=== PATIENT | male | born 1955 | race Caucasian/White ===

== ENCOUNTER 2021-09-22 16:11 | Outpatient (REF) | payer BC, SELFPAY ==
[2021-09-22 16:34] LABS: MANUAL DIFF FLAG NO
[2021-09-22 16:47] LABS: Appearance Urine CLEAR; Color Urine YELLOW; Glucose Urine UA NEG (NEG); Leukocyte Esterase Urine NEG (NEG); Nitrite Urine NEG (NEG); Urine Blood TRACE (NEG); Urine Ketones 15 MG/DL (NEG); Urine Protein NEG (NEG-TRACE)
[2021-09-22 16:59] LABS: Basophils Absolute Auto 0.1 X10*3/uL (0.0-0.2); Basophils Percent Auto 0.8 % (0-2); Eosinophils Absolute Auto 0.2 X10*3/uL (0.0-0.4); Eosinophils Percent Auto 2.3 % (0-4); Hematocrit 42.2 % (42.0-52.0); Hemoglobin 14.5 g/dl (14.0-18.0); Imm Gran Abs Auto 0.01 X10*3/uL (0.00-0.03); Imm Gran Pct Auto 0.2 % (0.0-0.4); Lymphocytes Absolute Auto 2.4 X10*3/uL (1.2-4.9); Lymphocytes Percent Auto 36.9 % (20-40); Mean Corpuscular HGB Conc 34.4 g/dl (31.0-36.0); Mean Corpuscular Volume 93.2 fL (80.0-98.0); Mean Platelet Volume 9.9 fL (9.4-12.4); Monocytes Absolute Auto 0.7 X10*3/uL (0.1-1.2); Monocytes Percent Auto 10.9 % (2-11); Neutrophils Absolute Auto 3.1 x10*3/uL (2.0-8.3); Neutrophils Percent Auto 48.9 % (45-73); Platelet Count 217 X10*3/uL (160-400); Red Blood Count 4.53 X10*6/uL (4.60-5.80); Red Cell Distribution Width 14.3 % (11.0-16.0); White Blood Count 6.4 X10*3/uL (4.8-10.8)
[2021-09-22 17:01] LABS: WBC Urine 0 /HPF (0-4)
[2021-09-22 17:13] LABS: Alanine Aminotransferase 16 U/L (0-40); Albumin Level 4.4 g/dL (3.5-5.0); Alkaline Phosphatase 67 U/L (39-117); Anion Gap 13 (12-20); Aspartate Amino Transferase 19 U/L (5-37); Bilirubin Total 0.7 mg/dL (0.0-1.0); Blood Urea Nitrogen 14 mg/dL (9-16); Calcium 9.8 mg/dL (8.4-10.2); Carbon Dioxide 22 mmol/L (22-29); Chloride 104 mmol/L (96-108); Cholesterol 200 mg/dL; Estimated Glomerular Filt Rate > 60; Glucose Random 84 mg/dL (60-115); HDL Cholesterol 101 mg/dL; LDL Cholesterol Calculated 91 mg/dl; Potassium 4.1 mmol/L (3.3-5.1); Sodium 135 mmol/L (135-145); Total Protein 7.3 g/dL (6.5-8.0); Triglycerides 41 mg/dL
[2021-09-22 17:31] LABS: Prostate Specific Antigen 0.94 ng/mL (<0.05-4.0)
== END 2021-09-22 16:12 | disposition home or self-care (01) ==
LOC: HO.LAB 16:11
PROVIDERS: PCP Internal Medicine; Visit Provider Internal Medicine
DX: Z00.00 Encounter for general adult medical examination without abnormal findings (principal); Z72.0 Tobacco use; Z12.5 Encounter for screening for malignant neoplasm of prostate
CPT/HCPCS: 36415; 80053; 80061; 81001; 84153; 85025

== ENCOUNTER 2023-06-03 10:27 | Outpatient (REF) | payer SELFPAY ==
[2023-06-03 13:06] LABS: MANUAL DIFF FLAG NO
[2023-06-03 13:10] LABS: Basophils Absolute Auto 0.1 X10*3/uL (0.0-0.2); Eosinophils Absolute Auto 0.2 X10*3/uL (0.0-0.4); Eosinophils Percent Auto 2.9 % (0-4); Hematocrit 43.7 % (42.0-52.0); Hemoglobin 14.8 g/dl (14.0-18.0); Imm Gran Abs Auto 0.01 X10*3/uL (0.00-0.03); Imm Gran Pct Auto 0.2 % (0.0-0.4); Lymphocytes Absolute Auto 1.8 X10*3/uL (1.2-4.9); Mean Corpuscular HGB Conc 33.9 g/dl (31.0-36.0); Mean Corpuscular Hemoglobin 32.1 pg (27.0-33.0); Mean Corpuscular Volume 94.8 fL (80.0-98.0); Monocytes Absolute Auto 0.8 X10*3/uL (0.1-1.2); Monocytes Percent Auto 12.9 % (2-11); Neutrophils Absolute Auto 3.5 x10*3/uL (2.0-8.3); Platelet Count 229 X10*3/uL (160-400); Red Blood Count 4.61 X10*6/uL (4.60-5.80); Red Cell Distribution Width 14.1 % (11.0-16.0); White Blood Count 6.3 X10*3/uL (4.8-10.8)
[2023-06-03 13:24] LABS: Alanine Aminotransferase 16 U/L (0-40); Albumin Level 4.2 g/dL (3.5-5.0); Alkaline Phosphatase 83 U/L (39-117); Anion Gap 7 (12-20); Aspartate Amino Transferase 18 U/L (5-37); Bilirubin Total 0.3 mg/dL (0.0-1.0); Blood Urea Nitrogen 21 mg/dL (9-16); Calcium 9.5 mg/dL (8.4-10.2); Carbon Dioxide 24 mmol/L (22-29); Chloride 107 mmol/L (96-108); Estimated Glomerular Filt Rate > 60; Glucose Random 88 mg/dL (60-115); Sodium 134 mmol/L (135-145); Total Protein 7.4 g/dL (6.5-8.0)
[2023-06-03 13:46] LABS: Prostate Specific Antigen Scr 1.35 ng/mL (<0.05-4.0)
== END 2023-06-03 10:28 | disposition home or self-care (01) ==
LOC: HO.10HDL 10:27
PROVIDERS: Visit Provider Internal Medicine
DX: Z12.5 Encounter for screening for malignant neoplasm of prostate (principal); R35.1 Nocturia; R42 Dizziness and giddiness; Z72.0 Tobacco use
CPT/HCPCS: 36415; 80053; 84153; 85025

== ENCOUNTER 2025-04-28 23:31 | Emergency (ER) | payer OTHER, SELFPAY ==
--- NOTE | ~2025-04-28 | CT_ITS ---
CLINICAL HISTORY: head strike, posterior hematoma CT head without contrast Comparison: None provided Findings: There is no acute intracranial hemorrhage. Ventricles are within normal limits in size. No mass effect or midline shift is present. The field-white matter differentiation appears normal. There is mild generalized cerebral atrophy. The visualized portions of the orbits, paranasal sinuses, and mastoids are unremarkable. No fractures are identified. There is a posterior scalp hematoma and skin cleo. IMPRESSION: No acute intracranial abnormality. This document has been electronically signed by: Lenard Ferrell MD on 04/29/2025 01:47:57
[2025-04-28 23:37] VITALS: BP 151/82; PULSE 85; RESP 20; TEMP 36.4; O2SAT 97; BMI 20.5
--- OUTSIDE RECORDS SUMMARY | 2025-04-29 00:10 | XMS_ITS | Clinical Summary ---
Author Organization [facility] Address [address] [place] [phone] Phone Care Team Providers Care Quality Inspector Name Role Phone Shamir Page MD Primary Care Provider Allergies No known active allergies Medications lidocaine (LIDODERM) 5 % Place 1 patch onto the skin daily. Remove & Discard patch within 12 hours or as directed by 30 patch 09/24/2024 Active Social History Tobacco Use Types Packs/Day Years Used Date Smoking Tobacco: Never Assessed Education Answer Date Recorded Are you interested in more education? Not on matthieu e 09/24/2024 Are you concerned about learning? Not on file 09/24/2024 No 09/24/2024 No 09/24/2024 Digital Access Answer Date Recorded No 09/24/2024 No 09/24/2024 Reliable internet access at home? Not on file 09/24/2024 Device with a working camera? Not on file Intimate Partner Violence Answer Date R ecorded Are you denied basic needs s uch as food, clothing, or medical care? No 09/24/2024 In the past 12 months have y ou been in a relationship with a person who hurts, threatens, or tries to control you? No 09/24/2024 Are you denied basic needs s uch as food, clothing, or medical care? No 09/24/2024 In the past 12 months have y ou been in a relationship with a person who hurts, threatens, or tries to control you? No 09/24/2024 Sex and Gender Information Value Date Recorded Sex Assigned at Not on file Legal Sex Male 4:13 PM EDT Gender Identity Not on file Sexual Orientation Not on file Last Filed Vital Signs Vital Sign Reading Time Taken Comments Blood Pressure 158/86 09/24/2024 4:16 PM EDT Pulse 80 09/24/2024 4:16 PM EDT Temperature 37.2 C (99 F) 09/24/2024 4:16 PM EDT Respiratory Rate 20 09/24/2024 4:16 PM EDT Oxygen Saturation 95% 09/24/2024 4:16 PM EDT Inhaled Oxygen Concentration - - Weight 77.1 kg (170 lb) 09/24/2024 4:16 PM EDT Height 180.3 cm (5' 11 ) 09/24/2024 4:16 PM EDT Body Mass Index 23.71 09/24/2024 4:16 PM EDT Plan of Treatment Not on file Medical Devices Not on file Insurance [facility] MEDIC[facility] REPLACEMENT Member Subscriber Plan / Payer (Ef fective 2024-Present) Name:Micah Kimble Relation to Subscriber:Self Name:Micah Kimble Payer ID:[id number] (NAIC) Type:Medicare Address: [place] [id number] Care Teams Quality Inspector Relationship Specialty Start Date End Date Shamir Page MD [address] [place] [address] [place] [address] PCP - General 09/24/24 Additional Source Comments The information contained in this document represents components of the legal health record. It is not the complete legal health record.[facility]
--- NOTE | 2025-04-29 00:42 | ED_ITS ---
HPI - Fall General Chief Complaint: Fall Stated Complaint: fall w/ strike Time Seen by Provider: 04/28/25 23:48 History of Present Illness ED Provider: tracy HPI Narrative: This is a pleasant, healthy 69-year-old male who presents after a non-syncopal slip on the ice fell backwards, struck the occipital scalp with a small laceration there, minimal bleeding, denies anticoagulation, denies back, buttock, or any extremity or other pain or injuries. No nausea, vomiting, vision symptoms, or focal neurologic complaints. Related Data Allergies Allergy/AdvReac Type Severity Reaction Status Date / Time No Known Allergies Allergy Verified 04/28/25 23:39 [facility] Social History Social History Advance Directives: No Advance Directives Information Provided: Yes Do you have a plan to hurt others: No Plan Physical Exam Exam: Exam: EXAM: Gen: Alert, awake, well appearing, well hydrated. Head: No step off. Small, approximately 1.5 cm, laceration of the occiput, not involving the aponeurosis Eyes: Anicteric, Normal conjunctiva. ENT: Moist mucosa, no pallor. Neck: Supple. Respiratory: Breathing comfortably, No distress.Clear to auscultation b ilaterally, symmetric chest expansion, No wheeze, rales, ronchi. Cardiovascular: Regular rate and rhythm. No murmurs or rub. Well perfused periphery, warm extremities. No edema. Abdominal: Soft, no objective distension. No palpable masses or obvious organomegaly. No focal tenderness, no guarding, no rebound tenderness or other peritoneal findings. : No flank tenderness. Neuro: Alert. Gross movement of all extremities intact. Vital signs: See flowsheet Vital Signs: Vital Signs: Last Vital Signs Temp 97.6 F 04/29/25 01:54 Pulse 80 04/29/25 01:54 Resp 18 04/29/25 01:54 BP 148/78 H 04/29/25 01:54 Pulse Ox 98 04/29/25 01:54 O2 Del Method Room Air 04/29/25 01:54 BMI result Body Mass Index 20.5 Procedures Laceration Laceration 1: Site: scalp Size (cm): 1.5 Description: linear Depth: simple, single layer Pre-repair: irrigated extensively Number of closing items:: 3 Technique: cleo Medical Decision Making Medical Decision Making [facility] Narrative: 69-year-old male with non-syncopal fall, head strike, not on anticoagulation, CT brain negative for intracranial pathology. No neck tenderness, no other injuries. Patient received cleo for wound closure after irrigation. Differential Diagnosis Differential Diagnoses: The differential diagnosis associated with the presentation includes Concussion, mild TBI, scalp laceration Discharge Plan Discharge Clinical Impression: Laceration of scalp Patient Disposition: Home, Self-Care Instructions: Laceration (ED) Additional Instructions: Keep your laceration on your scalp clean do not submerge in water. You can shower with it but dry quickly afterwards. REM recommend gently cleaning the area with soapy cloth once per day and applying a thin layer of antibiotic ointment. The cleo need to be removed between day 8 and 12 Interventions: ED Discharge Assessment Last Done: 04/29/25 01:54 Discharge Date/Time: 04/29/25 01:55 Print Language: Estonian
[2025-04-29 01:54] VITALS: BP 148/78; PULSE 80; RESP 18; TEMP 36.4; O2SAT 98
== END 2025-04-29 01:55 | disposition home or self-care (01) ==
PROVIDERS: Emergency Provider Emergency Medicine
DX: S01.01XA Laceration without foreign body of scalp, initial encounter (principal); R51.9 Headache, unspecified; W00.0XXA Fall on same level due to ice and snow, initial encounter; Y93.9 Activity, unspecified; Y92.9 Unspecified place or not applicable; Y99.9 Unspecified external cause status
CPT/HCPCS: 12001; 70450; 99284

== ENCOUNTER → 2025-04-29 00:56 | Outpatient (BNV) | payer MEDICARE, SELFPAY | PROVIDERS: Emergency Provider Emergency Medicine; Visit Provider Radiology Diagnostic Radiology | DX: S00.93XA Contusion of unspecified part of head, initial encounter (principal) | CPT/HCPCS: 70450 ==